=== PATIENT | female | born 1970 | race Caucasian/White ===

== ENCOUNTER 2016-08-07 14:49 | Emergency (ER) | payer OTHER ==
[2016-08-07 15:25] LABS: HEMOGLOBIN 13.9 gm/dl (12.3-15.3); RED BLOOD COUNT 4.71 M/UL (4.00-5.10); WHITE BLOOD COUNT 18.7 K/UL (4.5-11.0)
[2016-08-07 15:49] LABS: BUN/CREATININE RATIO 10 (0-10)
[2016-08-15] MEDS ORDERED: SYNTHROID88 MCG PO (06:50)
[2016-08-15] MEDS ORDERED: VITAMIN D2000 UNI1 PO (06:51)
[2016-08-15] MEDS ORDERED: NORCO 7.5-3251 EACH PO (06:52)
[2016-08-15] MEDS ORDERED: PERCOCET 7.5-31 EACH PO (11:31)
[2016-08-15] MEDS ORDERED: LOVENOX SY40 MG/0.4 SQ (11:32)
== END 2016-08-07 21:00 | disposition home or self-care (01) ==
LOC: ER1 14:49
PROVIDERS: Emergency Medicine
DX: S09.90XA Unspecified injury of head, initial encounter (principal); S82.141A Displaced bicondylar fracture of right tibia, initial encounter for closed fracture; S80.811A Abrasion, right lower leg, initial encounter; V43.52XA Car driver injured in collision with other type car in traffic accident, initial encounter; Y93.89 Activity, other specified; Y92.410 Unspecified street and highway as the place of occurrence of the external cause
CPT/HCPCS: 36415; 70450; 71010; 71260; 73552; 73564; 73590; 73610; 73700; 80053; 82550; 82553; 83874; 84484; 85025; 93005; 96361; 96374; 96375; 99284; J2270; J2405; J7030; J7050; Q9962

== ENCOUNTER → 2016-08-15 | Day surgery (SDC) | payer OTHER ==
[~2016-08-15] VITALS: Ht 152.4 cm; Wt 101.2 kg
[~2016-08-15] MED LIST: LOVENOX SY40 MG/0.4 SQ; NORCO 7.5-3251 EACH PO; PERCOCET 7.5-31 EACH PO; SYNTHROID88 MCG PO; VITAMIN D2000 UNI1 PO
[2016-08-15 07:11] LABS: BUN/CREATININE RATIO 16 (0-10)
== END | disposition home or self-care (01) ==
LOC: OR 05:55
PROVIDERS: Orthopaedic Surgery
PROC: 0QSG04Z Reposition Right Tibia with Internal Fixation Device, Open Approach (ICD-10-PCS; principal; 2016-08-15 08:15)
DX: S82.141A Displaced bicondylar fracture of right tibia, initial encounter for closed fracture (principal); I10 Essential (primary) hypertension; E55.9 Vitamin D deficiency, unspecified; Z83.3 Family history of diabetes mellitus; Z79.891 Long term (current) use of opiate analgesic; Z79.899 Other long term (current) drug therapy; Z90.49 Acquired absence of other specified parts of digestive tract; Z98.84 Bariatric surgery status; Z98.890 Other specified postprocedural states; V89.2XXA Person injured in unspecified motor-vehicle accident, traffic, initial encounter
CPT/HCPCS: 36415; 73590; 76000; 80048; C1713; J0690; J1100; J1885; J2250; J2405; J2795; J3010; J7120